=== PATIENT | female | born 1965 | race Caucasian/White ===

== ENCOUNTER 2023-09-29 15:00 | Inpatient (IN) | payer OTHER ==
[2023-09-29 16:40] VITALS: BMI 29.2
[2023-09-29] MEDS ORDERED: LOPERAMIDE HCL 2 MG CAPSULE PO PRN (17:48)
[2023-09-29] MEDS ORDERED: POLYETHYLENE GLYCOL (HEALTHYLAX) 3350 17 GM PACKET PO PRN (17:48)
[2023-09-29] MEDS ORDERED: guaiFENesin 600 MG TABLET.ER (FP) PO PRN (17:48)
[2023-09-29] MEDS ORDERED: BISMUTH SUBSALICYLATE 524 MG/30 ML PO PRN (17:48)
[2023-09-29] MEDS ORDERED: IBUPROFEN 400 MG TABLET (FP) PO PRN (17:48)
[2023-09-29] MEDS ORDERED: BENZOCAINE/MENTHOL (CHLORASEPTIC ) LOZENGE MM PRN (17:48)
[2023-09-29] MEDS ORDERED: BENZONATATE 200 MG CAPSULE PO PRN (17:48)
[2023-09-29] MEDS ORDERED: NICOTINE POLACRILEX 2 MG GUM BUC PRN (17:48)
[2023-09-29] MEDS ORDERED: DICYCLOMINE HCL 10 MG CAPSULE PO PRN (17:48)
[2023-09-29] MEDS ORDERED: MAG HYDROX/AL HYDROX/SIMETH 30 ML UNIT-DOSE CUP PO PRN (17:48)
[2023-09-29] MEDS ORDERED: MAGNESIUM HYDROX 2400MG/30ML ORAL SUSPENSION 30 ML CUP PO PRN (17:48)
[2023-09-29] MEDS ORDERED: IBUPROFEN 600 MG TABLET (FP) PO PRN (17:48)
[2023-09-29] MEDS ORDERED: diazePAM 5 MG TABLET ONE (19:16)
[2023-09-29] MEDS ORDERED: ONDANSETRON *ODT* 4 MG TABLET ONE (19:17)
[2023-09-29] MEDS: diazePAM 5 MG TABLET PO PRN (19:18)
[2023-09-29] MEDS: ONDANSETRON *ODT* 4 MG TABLET SL PRN (19:19)
[2023-09-29] MEDS: THIAMINE HCL 100 MG TABLET (FP) PO SCH (22:06)
[2023-09-29] MEDS: MELATONIN 5 MG TABLETS PO SCH (22:06)
[2023-09-29] MEDS: diazePAM 5 MG TABLET PO SCH (22:07)
[2023-09-29] MEDS: FLUTICASONE PROP 0.05% 16 GM NASAL SPRAY NS SCH (22:07)
[2023-09-29] MEDS: METHOCARBAMOL 500 MG TABLET PO PRN (22:09)
[2023-09-29] MEDS ORDERED: ALBUTEROL SO4 HFA INHALER IH PRN (22:55)
[2023-09-29] MEDS: GABAPENTIN 300 MG CAPSULE PO SCH (23:10)
[2023-09-30] MEDS ORDERED: PATIENT'S OWN MEDICATION (NON-FORMULARY) (Meloxicam [Meloxicam] 7.5 MG Tablet) PO SCH (10:00)
[2023-09-30] MEDS ORDERED: NAPROXEN 250 MG TABLET PO SCH (10:00)
[2023-09-30] MEDS ORDERED: [UNRECOGNIZED DRUG - OTHER] NS SCH (10:00)
[2023-09-30] MEDS: LORATADINE 10 MG TABLET PO SCH (10:06)
[2023-09-30] MEDS: PANTOPRAZOLE 40 MG TABLET PO SCH (10:06)
[2023-09-30] MEDS: FOLIC ACID 1 MG TABLET (FP) PO SCH (10:06)
[2023-09-30] MEDS: METHOCARBAMOL 750 MG TABLET PO SCH (10:06)
[2023-09-30] MEDS: NAPROXEN 250 MG TABLET PO SCH (10:06)
[2023-09-30] MEDS: PRENATAL VITAMINS W/ FOLIC ACID TABLET (FP) PO SCH (10:08)
[2023-09-30] MEDS: NICOTINE 7 MG/24 HOURS TOPICAL PATCH TD SCH (10:08)
[2023-09-30 10:44] LABS: HEMATOCRIT 41.4 % (32.4-45.2); HEMOGLOBIN 14.4 GM/dL (10.7-15.3); MCH 35.4 pg (25.7-33.7); MCHC 34.7 g/dl (32.0-36.0); MEAN CELL VOLUME 102.2 fl (80-96); PLATELET COUNT 114 10^3/uL (134-434); RBC 4.06 M/mm3 (3.60-5.2); RDW 13.6 % (11.6-15.6); WHITE BLOOD COUNT 5.8 K/mm3 (4.0-10.0)
[2023-09-30] MEDS: NICOTINE 14 MG/24 HOURS TOPICAL PATCH TD SCH (11:34)
[2023-09-30 11:46] LABS: POTASSIUM 3.8 mmol/L (3.5-5.1)
[2023-09-30 11:55] LABS: ALBUMIN 3.8 g/dl (3.4-5.0); BLOOD UREA NITROGEN 8.1 mg/dL (7-18); CALCIUM 9.4 mg/dL (8.5-10.1)
[2023-09-30 11:58] LABS: CREATININE 0.6 mg/dL (0.55-1.3)
[2023-09-30 12:00] LABS: BILIRUBIN,TOTAL 1.2 mg/dL (0.2-1); TOT PROT 8.5 g/dl (6.4-8.2)
[2023-09-30] MEDS: MELOXICAM 15 MG PO SCH (13:21)
[2023-09-30] MEDS: ACETAMINOPHEN 325 MG TABLET (FP) PO PRN (18:49)
[2023-09-30] MEDS: ATORVASTATIN CA 20 MG TABLET (FP) PO SCH (22:15)
[2023-10-01] MEDS: diazePAM 5 MG TABLET PO SCH (05:28)
[2023-10-02] MEDS: diazePAM 5 MG TABLET PO SCH (05:23)
[2023-10-02] MEDS: ERGOCALCIFEROL (VIT D2) 50,000 UNIT (1.25 MG) CAPSULE PO SCH (22:34)
[2023-10-03] MEDS: diazePAM 5 MG TABLET PO ONE (05:06)
[2023-10-03 09:25] VITALS: BP 109/68; PULSE 79; RESP 18; TEMP 97.5
== END 2023-10-03 09:04 | disposition home or self-care (01) | DRG 775 ==
LOC: YASAS 15:00 → Y3N 18:32
PROVIDERS: ADMIT Allergy & Immunology; ATTEND Surgery
PROC: HZ2ZZZZ Detoxification Services for Substance Abuse Treatment (ICD-10-PCS; principal; 2023-09-29)
DX: F10.230 Alcohol dependence with withdrawal, uncomplicated (principal); F17.210 Nicotine dependence, cigarettes, uncomplicated; E78.2 Mixed hyperlipidemia; J45.20 Mild intermittent asthma, uncomplicated; M54.50 Low back pain, unspecified; G89.29 Other chronic pain; Z88.8 Allergy status to other drugs, medicaments and biological substances
CPT/HCPCS: 0241U-QW; 36415; 80053; 85027; 86780; 93005; 93010; Q0162